=== PATIENT | male | born 1970 | race Caucasian/White ===

== ENCOUNTER 2018-11-29 18:21 | Emergency (ER) | payer MEDICAID ==
[~2018-11-29] VITALS: Ht 175.3 cm; Wt 50.0 kg
[~2018-11-29 18:21] MED LIST: NAPROSYN500 MG OR; NO MEDS; ULTRAM50 M1 PO
[2018-11-29] MEDS ORDERED: PROVENTIL HFA IN (22:02)
[2018-11-29] MEDS ORDERED: CIPROFLOXACN500 MG PO (22:02)
[2018-11-29] MEDS ORDERED: CODEINE/GUAIFEN1 SOL PO (22:03)
[2018-11-29 22:16] VITALS: BP 130/71
== END 2018-11-29 22:14 | disposition home or self-care (01) ==
LOC: ED 18:21
DX: J18.9 Pneumonia, unspecified organism (principal); F17.200 Nicotine dependence, unspecified, uncomplicated; J02.9 Acute pharyngitis, unspecified; R05 Cough; R11.2 Nausea with vomiting, unspecified

== ENCOUNTER 2018-12-01 18:39 | Emergency (ER) | payer MEDICAID ==
[~2018-12-01] VITALS: Ht 172.7 cm; Wt 52.2 kg
[~2018-12-01 18:39] MED LIST changes: +CIPROFLOXACN500 MG PO; +CODEINE/GUAIFEN1 SOL PO; +PROVENTIL HFA IN
[2018-12-01 19:51] LABS: HEMATOCRIT 41.7 % (39.0-50.0); HEMOGLOBIN 15.2 g/dl (14.0-18.0); IMMATURE GRANULOCYTES 0.4 % (0.0-5.0); MEAN CELL VOLUME 85.1 fL CALC (80.0-100.0); MEAN CORPUSCULAR HGB CONC 36.5 g/L CALC (32.0-36.0); NEUT# 3.92 thou/uL (1.82-7.42); RED BLOOD COUNT 4.9 mill/uL (4.70-6.10); RED CELL DISTRI WIDTH 12.1 % (11.5-15.5)
[2018-12-01 20:05] LABS: ALBUMIN 4.3 g/dL (3.2-5.0); ALKALINE PHOSPHATASE 64 u/l (38-126); BILIRUBIN, TOTAL 1.2 mg/dL (0.0-1.4); BUN 18 mg/dL (9-20); BUN/CREATININE RATIO 22 (12-20 (CALC)); CARBON DIOXIDE 21 mmol/l (22-30); CHLORIDE 98 mmol/l (95-108); CREATININE 0.8 mg/dL (0.7-1.3); GFR > 60 ML/MIN (>=60 (CALC)); GFR FOR AFR.AMER. > 60 ML/MIN (>=60 (CALC)); POTASSIUM 3.3 mmol/l (3.5-5.1)
[2018-12-01 20:06] LABS: ANION GAP 18 (6-22 (CALC)); SGOT/AST 49 u/l (17-59); SODIUM 134 mmol/l (137-146)
[2018-12-01] MEDS ORDERED: ZOFRAN4 MG/TAB PO (21:37)
[2018-12-01 21:50] VITALS: BP 150/100
== END 2018-12-01 21:50 | disposition home or self-care (01) ==
LOC: ED 18:39
PROVIDERS: Emergency Medicine
DX: J18.9 Pneumonia, unspecified organism (principal); F17.210 Nicotine dependence, cigarettes, uncomplicated; R06.02 Shortness of breath; R11.2 Nausea with vomiting, unspecified; R05 Cough

== ENCOUNTER 2024-04-05 11:01 | Emergency (ER) | payer BC ==
[2024-04-05] VITALS (8 sets, daily range): BP systolic 66–124; BP diastolic 41–85
[~2024-04-05] VITALS: Ht 172.7 cm; Wt 61.0 kg
[~2024-04-05 11:01] MED LIST changes: +ZOFRAN4 MG/TAB PO
[2024-04-05 11:53] LABS: BASO% 0.9 % (0-3); EOS% 3.5 % (0-8); HEMATOCRIT 42.9 % (39.0-50.0); HEMOGLOBIN 14.8 g/dl (14.0-18.0); IMMATURE GRANULOCYTES 0.1 % (0.0-5.0); LYMPH% 29.7 % (15-41); MEAN CELL VOLUME 88.1 fL CALC (80.0-100.0); MEAN CORPUSCULAR HGB 30.4 pG CALC (26.0-32.0); MEAN CORPUSCULAR HGB CONC 34.5 g/dL CAL (32.0-36.0); MONO% 8.8 % (2-13); NEUT# 4.38 thou/uL (1.82-7.42); RED BLOOD COUNT 4.87 mill/uL (4.70-6.10); RED CELL DISTRI WIDTH 12.7 % (11.5-15.5)
[2024-04-05 12:10] LABS: ALBUMIN 4.6 g/dL (3.2-5.0); BILIRUBIN, TOTAL 0.8 mg/dL (0.2-1.3); POTASSIUM 4.3 mmol/l (3.5-5.1); TOTAL PROTEIN 7.1 g/dL (6.3-8.2)
[2024-04-05 13:08] LABS: URINE BILIRUBIN - DIPSTICK Negative (NEGATIVE); URINE BLOOD DIPSTICK Negative (NEGATIVE); URINE GLUCOSE - DIPSTICK Negative (NEGATIVE); URINE KETONE Negative (NEGATIVE); URINE LEUK ESTERASE Negative (NEGATIVE); URINE NITRITE - DIPSTICK Negative (Negative); URINE PROTEIN - DIPSTICK Negative (NEG-TRACE); URINE SPECIFIC GRAVITY 1.025
[2024-04-05 13:13] LABS: URINE COLOR Yellow
[2024-04-05] MEDS ORDERED: NAPROXEN500 MG PO (14:02)
== END 2024-04-05 14:28 | disposition home or self-care (01) | DRG 392 ==
LOC: ED 11:01
PROVIDERS: Family Medicine
DX: R10.31 Right lower quadrant pain (principal); Z72.0 Tobacco use
CPT/HCPCS: Q9967